=== PATIENT | female | born 1995 | race Caucasian/White ===

== ENCOUNTER → 2018-08-02 11:47 | Outpatient (CLI) | payer MEDICAID | END | disposition home or self-care (01) | LOC: D.LDO 11:47 | DX: O16.3 Unspecified maternal hypertension, third trimester (principal); Z3A.30 30 weeks gestation of pregnancy ==

== ENCOUNTER 2018-09-27 11:52 | Inpatient (IN) | payer MEDICAID ==
[~2018-09-27] VITALS: Ht 165.1 cm; Wt 72.1 kg
[2018-09-27 13:15] LABS: BASOPHILS 0.1 % (0-2); EOSINOPHILS 0.8 % (0-7); HEMATOCRIT 33.2 % (36.0-48.0); HEMOGLOBIN 10.9 g/dL (12-16); IMMATURE GRANULOCYTES 0.4 % (0-5); LYMPHOCYTES 20.5 % (15-50); MCH 28.4 pg (26.0-34.0); MCHC 32.8 g/dL (31.0-37.0); MCV 86.5 fL (80.0-100.0); MEAN PLATELET VOLUME 9.7 fL (7.4-10.4); MONOCYTES 9.1 % (2-11); NEUTROPHILS 69.1 % (40-80); PLATELET COUNT 332 10x3/uL (130-400); RBC 3.84 10x6/uL (4.00-5.40); RDW 12.8 % (11.5-14.5); WBC 12.5 10x3/uL (4.8-10.8)
[2018-09-27 13:27] LABS: ALT (SGPT) 11 U/L (10-68); CALC OSMOLALITY 267 mosm/kg (275-300); CALCIUM 8.6 mg/dL (8.5-10.1); CARBON DIOXIDE 24.2 mmol/L (21.0-32.0); CHLORIDE - SERUM 103 mmol/L (98-107); CREATININE - SERUM 0.5 mg/dL (0.6-1.3); GLUCOSE 79 mg/dL (74-106); SODIUM 136 mmol/L (136-145); UREA NITROGEN 4 mg/dL (7-18); URIC ACID 2.4 mg/dL (2.6-7.2); eGFR NON AFRICAN AMERICAN > 90 mL/min (90-120)
[2018-09-27 14:31] LABS: APPEARANCE HAZY (CLEAR); BILIRUBIN NEGATIVE (NEGATIVE); COLOR YELLOW (YELLOW); GLUCOSE NEGATIVE (NEGATIVE); KETONE NEGATIVE (NEGATIVE); NITRITE NEGATIVE (NEGATIVE); PROTEIN NEGATIVE (NEGATIVE); UROBILINOGEN NORMAL (NORMAL); WHITE CELLS - URINE OCC /hpf (0-5)
[2018-09-27 14:32] LABS: AMORPHOUS SEDIMENT <1+ /lpf (NONE SEEN); BACTERIA MODERATE /hpf (NONE SEEN); EPITHELIAL CELLS OCC /hpf (0-5); MUCUS <1+ /lpf (NONE SEEN)
[2018-09-28 00:11] VITALS: BP 137/66; Ht 165.1 cm; Wt 72.1 kg
[2018-09-28 06:14] LABS: HEMATOCRIT 32.1 % (36.0-48.0); HEMOGLOBIN 10.2 g/dL (12-16); MCH 27.9 pg (26.0-34.0); MCHC 31.8 g/dL (31.0-37.0); MCV 87.7 fL (80.0-100.0); MEAN PLATELET VOLUME 10.2 fL (7.4-10.4); RBC 3.66 10x6/uL (4.00-5.40)
[2018-09-28 21:10] VITALS: BP 139/87
[2018-09-28 22:16] VITALS: BP 141/90
[2018-09-28 23:04] VITALS: BP 137/83
[2018-09-29 05:54] VITALS: BP 147/85
[2018-09-29 06:50] LABS: BASOPHILS 0.1 % (0-2); EOSINOPHILS 0.9 % (0-7); HEMATOCRIT 31.4 % (36.0-48.0); HEMOGLOBIN 10.3 g/dL (12-16); IMMATURE GRANULOCYTES 0.3 % (0-5); LYMPHOCYTES 23.9 % (15-50); MCHC 32.8 g/dL (31.0-37.0); MCV 85.3 fL (80.0-100.0); MEAN PLATELET VOLUME 9.7 fL (7.4-10.4); MONOCYTES 9.6 % (2-11); NEUTROPHILS 65.2 % (40-80); PLATELET COUNT 297 10x3/uL (130-400); RBC 3.68 10x6/uL (4.00-5.40); RDW 12.9 % (11.5-14.5)
[2018-09-29 07:06] VITALS: BP 132/91
[2018-09-29 07:29] LABS: RAPID PLASMA REAGIN Non Reactive (Non Reactive)
[2018-09-29 13:19] VITALS: BP 140/98
[2018-09-29 18:25] VITALS: BP 163/109
[2018-09-29 19:25] VITALS: BP 127/76
[2018-09-30 02:52] VITALS: BP 140/90
[2018-09-30 05:39] VITALS: BP 146/85
[2018-09-30 08:45] VITALS: BP 140/90
[2018-09-30] MEDS ORDERED: NORCO 5/325 TAB1 TAB PO (11:57)
[2018-09-30] MEDS ORDERED: NORMODYNE / TR100 MG PO (11:58)
[2018-09-30] MEDS ORDERED: IBUPROFEN600 MG PO (11:58)
== END 2018-09-30 14:15 | disposition home or self-care (01) | DRG 807 ==
LOC: D.LDO 11:52 → D.LD 19:15 → OBSVTIME 19:15 → D.LD 22:27
PROVIDERS: Obstetrics & Gynecology
PROC: 10E0XZZ Delivery of Products of Conception, External Approach (ICD-10-PCS; principal; 2018-09-28)
PROC: 10907ZC Drainage of Amniotic Fluid, Therapeutic from Products of Conception, Via Natural or Artificial Opening (ICD-10-PCS; 2018-09-28)
DX: O14.94 Unspecified pre-eclampsia, complicating childbirth (principal); Z37.0 Single live birth; Z87.891 Personal history of nicotine dependence; Z3A.38 38 weeks gestation of pregnancy